=== PATIENT | male | born 1965 | race Asian ===

== ENCOUNTER 2024-07-21 17:57 | Emergency (ER) | payer OTHER ==
[~2024-07-21] VITALS: Ht 170.2 cm; Wt 68.5 kg
[2024-07-21 19:56] LABS: BASO % 0.7 % (0.1-1.2); EOS # 0.09 (0.04-0.54); EOS % 1.5 % (0.7-7.0); HEMATOCRIT 39.4 % (40.1-51.0); HEMOGLOBIN 13.2 g/dL (13.7-17.5); LYMPH # 1.59 (1.18-3.74); LYMPH % 26.5 % (19.3-53.1); MEAN CORPUSCULAR HEMOGLOBIN 28.9 pg (25.6-32.2); MONO # 0.52 (0.24-0.82); MONO % 8.7 % (4.7-12.5); NEUT # 3.75 (1.56-6.13); NEUT % 62.4 % (34.0-71.1); PLATELET COUNT 276 K/uL (163-369); RED BLOOD COUNT 4.56 M/uL (4.63-6.08); RED CELL DISTRIBUTION WIDTH 12.5 % (11.6-14.4)
[2024-07-21 20:04] LABS: PH,URINE 6.5 (5.0-8.0); URINE APPEARANCE Clear; URINE BILIRRUBIN Negative (NEGATIVE); URINE BLOOD Negative; URINE COLOR Yellow; URINE GLUCOSE Negative (NEGATIVE); URINE KETONE Negative (NEGATIVE); URINE LEUKOCYTE Negative; URINE NITRATE Negative; URINE PROTEIN Negative (NEGATIVE); URINE UROBILINOGEN 0.2 E.U./dl
[2024-07-21 20:06] LABS: URINE BACTERIA 2.4 uL (0.0-1933); URINE EPITHELIAL CELLS 0.6 uL (0.0-38.8); URINE RBC 1.9 uL (0.0-20.8); URINE WBC 0.3 uL (0.0-23.2)
[2024-07-21 20:39] LABS: BILIRUBIN TOTAL 0.59 mg/dL (0.3-1.2); CALCIUM 9.5 mg/dL (8.5-10.1); CREATININE SERUM 0.9 mg/dL (0.70-1.30); GFR 86.37; GLOBULINA 4.3 G/DL (2.4-3.5); POTASSIUM 3.96 mEq/L (3.5-5.1); TOTAL PROTEIN 8.3 gm/dL (6.4-8.2)
[2024-07-21] MEDS ORDERED: DICLOFENAC SODI75 MG PO (22:47)
== END 2024-07-21 22:54 | disposition home or self-care (01) ==
LOC: ER 19:38
PROVIDERS: General Practice
DX: R10.9 Unspecified abdominal pain (principal)